=== PATIENT | female | born 1965 | race Caucasian/White ===

== ENCOUNTER 2021-03-21 13:27 | Day surgery (SDC) | payer BC ==
[~2021-03-21] VITALS: Ht 152.4 cm; Wt 88.9 kg
[~2021-03-21 13:27] MED LIST: CEFAZOLIN 2 GM IVPB PREMIX 50 ML IV ONE; CLINDAMYCIN 600 mg/50mL D5W 50 ML IV ONE; LEVOFLOXACIN IN DEXTROSE 5 % 100 ML IV ONE
[2021-03-21] MEDS ORDERED: ONDANSETRON HCL 4 MG/2 ML VIAL IVP ONE (17:20)
[2021-03-21] MEDS ORDERED: NS IRRIG SOLN 1000 ML IR ONE (17:20)
[2021-03-21] MEDS ORDERED: BUPIVACAINE /EPINEPHRINE/PF 0.25% 30 ML VIAL INJ ONE (17:20)
[2021-03-21] MEDS ORDERED: fentaNYL CITRATE/PF 100 MCG/2 ML AMP IVP ONE (17:20)
[2021-03-21] MEDS ORDERED: ROCURONIUM BROMIDE 10 MG/ML (ZEMURON) IV ONE (17:20)
[2021-03-21] MEDS ORDERED: GLYCOPYRROLATE 0.2 MG/ML VIAL IJ ONE (17:20)
[2021-03-21] MEDS ORDERED: MIDAZOLAM HCL 5 MG/5 ML VIAL IVP ONE (17:20)
[2021-03-21] MEDS ORDERED: NS 1000 ML IV.SOLN IV ONE (17:20)
[2021-03-21] MEDS ORDERED: NEOSTIGMINE METHYLSULFATE 1 MG/ML, 10 ML VIAL IVP ONE (17:20)
[2021-03-21] MEDS ORDERED: PROPOFOL 200MG/ 20ML VIAL (DIPRIVAN) IV ONE (17:20)
[2021-03-21] MEDS ORDERED: SEVOFLURANE 15 MIN GAS INH ONE (17:20)
[2021-03-21] MEDS ORDERED: LEVOFLOXACIN IN DEXTROSE 5 % 500 MG/100 ML PIGGYBACK IV ONE (17:20)
[2021-03-21] MEDS ORDERED: ONDANSETRON HCL 4 MG/2 ML VIAL IVP PRN (18:15)
[2021-03-21] MEDS ORDERED: METOCLOPRAMIDE HCL 10 MG/2 ML VIAL IVP PRN (18:15)
[2021-03-21] MEDS ORDERED: fentaNYL CITRATE/PF 100 MCG/2 ML AMP IVP PRN ×2 (18:15)
[2021-03-21] MEDS ORDERED: GLYCOPYRROLATE 0.2 MG/ML VIAL ONE ×2 (19:29→20:29)
[2021-03-21] MEDS ORDERED: fentaNYL CITRATE/PF 100 MCG/2 ML AMP ONE (19:57)
[2021-03-21] MEDS ORDERED: ONDANSETRON HCL 4 MG/2 ML VIAL ONE (20:05)
[2021-03-21] MEDS ORDERED: KETOROLAC TROMETHAMINE 30 MG VIAL ONE ×2 (21:07→21:48)
[2021-03-21] MEDS ORDERED: METOCLOPRAMIDE HCL 10 MG/2 ML VIAL ONE ×2 (21:08→21:09)
[2021-03-21 21:52] VITALS: BP_SYST 102
== END 2021-03-21 21:40 | disposition home or self-care (01) ==
LOC: SDS 13:27 → SMU 13:28 → SDS 21:40
PROVIDERS: ATTEND Surgery
DX: K80.10 Calculus of gallbladder with chronic cholecystitis without obstruction (principal); R19.8 Other specified symptoms and signs involving the digestive system and abdomen; I10 Essential (primary) hypertension; Z88.0 Allergy status to penicillin; Z79.899 Other long term (current) drug therapy
CPT/HCPCS: 47562; 88304; C1727; J1885; J1956; J2405; J2765; J3010; J3490 ×2; J0690; J2250; J2704; J2710; J7030